=== PATIENT | female | born 2000 | race Caucasian/White ===

== ENCOUNTER 2021-08-23 15:52 | Inpatient (IN) ==
[2021-08-23] MEDS ORDERED: BUTORPHANOL 1 MG/ML VIAL IV PRN (16:16)
[2021-08-23 16:26] LABS: Basophils % 0.2 % (0.0-0.8); Eosinophils # 0.1 10*3/uL (0.0-0.87); Eosinophils % 0.8 % (0.00-10.9); Hematocrit 32.1 VOL% (35.7-47.0); Hemoglobin 9.8 GM/DL (12.0-16.0); Immature Granulocytes % 0.8 %; Immature Granulocytes Absolute 0.09 #; Lymphocytes # 1.5 10*3/uL (1.4-4.0); Mean Corpuscular HGB Conc 30.5 GM/DL (32-36); Mean Corpuscular Volume 89.9 FL (87-102); Mean Platelet Volume 13.7 FL (9.6-12.0); Monocytes % 5.5 % (1.7-12.7); Neutrophils % 79.7 % (38.7-73.9); Platelet Count 99 T/CUMM (130-400); Red Blood Count 3.57 MC/CUMM (3.8-5.5); Red Cell Distribution Width 15.2 % (9.3-17.3); White Blood Count 11.8 T/CUMM (4-12)
[2021-08-23 16:41] LABS: Bilirubin,Total 0.6 MG/DL (0.20-1.00); Calcium 8.3 MG/DL (8.5-10.1); Osmolality,Calculated 274.5 MOS/KG (273-304); Potassium 3.2 MMOL/L (3.5-5.1); Total Protein 6.4 G/DL (6.4-8.2)
[2021-08-23 17:11] LABS: Hepatitis B Surface Ag Quant < 0.10 Index; Hepatitis B Surface Ag Result Non-Reactive (NonReactive)
[2021-08-23] MEDS ORDERED: BUTORPHANOL 2 MG/ML VIAL IV PRN (20:10)
[2021-08-23] MEDS ORDERED: MEPERIDINE 50 MG/1 ML VIAL IV PRN (20:10)
[2021-08-23] MEDS: LACTATED RINGERS 1,000 ML IV SCH ×2 (20:29→22:03)
[2021-08-23] MEDS: ONDANSETRON 4 MG/2 ML VIAL IV PRN (20:29)
[2021-08-23] MEDS ORDERED: CITRIC ACID/SODIUM CITRATE 30 ML UDCUP PO ONE (20:36)
[2021-08-23] MEDS ORDERED: ePHEDrine 50 MG/ML VIAL IV PRN (20:36)
[2021-08-23] MEDS ORDERED: PROMETHAZINE 25 MG/1 ML VIAL IM PRN (20:36)
[2021-08-23] MEDS ORDERED: diphenhydrAMINE 50 MG/1 ML VIAL IV PRN (20:36)
[2021-08-23] MEDS ORDERED: FAMOTIDINE 20 MG/2 ML VIAL IV ONE (20:36)
[2021-08-23] MEDS ORDERED: hydrOXYzine HCL 25 MG/1 ML VIAL IM PRN (20:36)
[2021-08-23] MEDS ORDERED: NALOXONE 0.4 MG/ML VIAL IV PRN (20:36)
[2021-08-23] MEDS: fentaNYL 2 MCG/ROPIV 0.2% EPID 100 ML EPIDURAL SCH (21:43)
[2021-08-24 00:05] LABS: Bilirubin,Urine Negative (Negative); Blood, Urine Negative (Negative); Glucose,Urine (UA) Negative (Negative); Ketones,Urine Negative (Negative); Nitrite,Urine Negative (Negative); Protein,Urine Negative; RBC,Urine <1 /HPF (0-4); Urine Appearance CLEAR (Clear); Urine Color Straw (Yellow); Urine Specific Gravity 1.003 (1.001-1.035); Urine Urobilinogen < 2.0 EU/DL (0.2-1.0)
[2021-08-24 00:32] LABS: HIV Antigen/Antibody Result Nonreactive (Nonreactive)
[2021-08-24] MEDS: fentaNYL 2 MCG/ROPIV 0.2% EPID 100 ML EPIDURAL SCH ×2 (03:58→12:41)
[2021-08-24] MEDS: LACTATED RINGERS 1,000 ML IV SCH (04:17)
[2021-08-24] MEDS: ONDANSETRON 4 MG/2 ML VIAL IV PRN ×2 (05:49→20:40)
[2021-08-24] MEDS: OXYTOCIN/LR 20 UNIT/1,000 ML BAG IV SCH ×2 (07:14→14:46)
[2021-08-24] MEDS ORDERED: miSOPROStoL 200 MCG TABLET ONE (09:27)
[2021-08-24] MEDS ORDERED: TRANEXAMIC ACID 1,000 MG/10 ML VIAL ONE (09:28)
[2021-08-24] MEDS ORDERED: SODIUM CHLORIDE 0.9% 0 ML IV ONE (09:28)
[2021-08-24] MEDS ORDERED: OXYTOCIN/LR 20 UNIT/1,000 ML BAG IV ONE (09:28)
[2021-08-24] MEDS ORDERED: METHYLERGONOVINE 0.2 MG/1 ML AMP ONE (09:29)
[2021-08-24] MEDS ORDERED: CARBOPROST TROMETHAMINE 250 MCG/ML AMP IM ONE (09:29)
[2021-08-24] MEDS ORDERED: LIDOCAINE 1% 50 ML VIAL ONE (11:59)
[2021-08-24 12:14] LABS: Cord Venous Blood HCO3 20.8 MMOL/L; Cord Venous Blood PCO2 43.5 MMHG; Cord Venous Blood PO2 26.3
[2021-08-24] MEDS ORDERED: IBUPROFEN 800 MG TABLET PO ONE (15:00)
[2021-08-24] MEDS: oxyCODONE/ACETAMINOPHEN 5-325 MG TABLET PO PRN ×3 (15:33→23:14)
[2021-08-24] MEDS: BENZOCAINE 20%/MENTHOL 0.5% SPRAY 56 GM CAN TOP PRN (16:37)
[2021-08-24] MEDS: WITCH HAZEL PADS 100/JAR TOP PRN (18:19)
[2021-08-24] MEDS: DOCUSATE SODIUM 100 MG CAPSULE PO SCH (20:53)
[2021-08-24] MEDS: IBUPROFEN 800 MG TABLET PO PRN (20:53)
[2021-08-24] MEDS: POTASSIUM CHLORIDE 20 MEQ TABLET PO PRN (23:14)
[2021-08-25] MEDS: POTASSIUM CHLORIDE 20 MEQ TABLET PO PRN ×3 (01:02→05:19)
[2021-08-25] MEDS: IBUPROFEN 800 MG TABLET PO PRN ×2 (03:03→17:28)
[2021-08-25] MEDS: oxyCODONE/ACETAMINOPHEN 5-325 MG TABLET PO PRN ×5 (04:18→22:44)
[2021-08-25 07:22] LABS: Basophils % 0.2 % (0.0-0.8); Eosinophils # 0.2 10*3/uL (0.0-0.87); Eosinophils % 1.4 % (0.00-10.9); Hemoglobin 9.9 GM/DL (12.0-16.0); Immature Granulocytes % 0.9 %; Immature Granulocytes Absolute 0.13 #; Lymphocytes # 2.4 10*3/uL (1.4-4.0); Lymphocytes % 17.1 % (21.3-54.2); Mean Corpuscular HGB Conc 30.9 GM/DL (32-36); Mean Corpuscular Volume 90.4 FL (87-102); Mean Platelet Volume 13.3 FL (9.6-12.0); Neutrophils % 73.4 % (38.7-73.9); Platelet Count 103 T/CUMM (130-400); Red Blood Count 3.54 MC/CUMM (3.8-5.5); Red Cell Distribution Width 15.5 % (9.3-17.3); White Blood Count 13.8 T/CUMM (4-12)
[2021-08-25 07:53] LABS: Hypochromasia 1+; Ovalocytes Few; Platelet Estimate Adequate; Tear Drop Cells Few
[2021-08-25] MEDS ORDERED: MAGNESIUM HYDROXIDE SUSP 30 ML UDCUP PO PRN (08:24)
[2021-08-25] MEDS: DOCUSATE SODIUM 100 MG CAPSULE PO SCH ×2 (08:38→21:13)
[2021-08-26] MEDS: IBUPROFEN 800 MG TABLET PO PRN ×2 (00:25→10:27)
[2021-08-26] MEDS: oxyCODONE/ACETAMINOPHEN 5-325 MG TABLET PO PRN ×2 (03:13→07:28)
[2021-08-26] MEDS: DOCUSATE SODIUM 100 MG CAPSULE PO SCH (07:28)
[2021-08-26 10:11] VITALS: BP 121/80
[2021-08-26] MEDS: WITCH HAZEL PADS 100/JAR TOP PRN (11:50)
[2021-08-26] MEDS: BENZOCAINE 20%/MENTHOL 0.5% SPRAY 56 GM CAN TOP PRN (11:50)
== END 2021-08-26 12:00 | disposition home or self-care (01) | DRG 768 ==
LOC: N.OBOUT 15:52 → N.LD 15:54 → N.OB 08-24 15:11
PROVIDERS: ADMIT Obstetrics & Gynecology; ATTEND Obstetrics & Gynecology